=== PATIENT | female | born 2000 | race Two or more races ===

== ENCOUNTER → 2023-03-14 | Emergency (ER) | payer MEDICAID, OTHER | END | disposition left against medical advice (07) | LOC: ER 13:22 | DX: R05.9 Cough, unspecified (principal); Z53.21 Procedure and treatment not carried out due to patient leaving prior to being seen by health care provider ==

== ENCOUNTER 2023-09-01 23:32 | Inpatient (IN) | payer MEDICAID ==
[~2023-09-01] VITALS: Ht 172.7 cm; Wt 108.6 kg
[2023-09-02] VITALS (9 sets, daily range): BP systolic 102–123; BP diastolic 56–69; PULSE 93–107; RESP 20–22; TEMP 98.2–100.7; O2SAT 93–97
[2023-09-02 00:46] LABS: Urine Bacteria None Seen /hpf (None Seen)
[2023-09-02 01:08] LABS: Urine Blood TRACE /uL (Negative); Urine Clarity Clear (Clear); Urine Color Yellow (Yellow); Urine Mucus FEW (None Seen); Urine Protein, UAD 1+ (Negative); Urine Specific Gravity 1.017 (1.001-1.035); Urine Urobilinogen 6 mg/dL (Negative); Urine WBC 34 /hpf (0 - 5); Urine pH 6.5 (5.0-9.0)
[2023-09-02 01:09] LABS: Basophils # (auto) 0.1 10 ^3/uL (0-0.2); Basophils % (auto) 0.6 % (0.0-2.0); Eosinophils # (auto) 0 10 ^3/uL (0-0.8); Hemoglobin 11.4 g/dL (12.2-16.2); Lymphocytes # (auto) 1.4 10 ^3/uL (0.4-5.4); Mean Corpuscular Hemoglobin 27.2 pg (28.0-32.0); Mean Corpuscular Hgb Conc. 33.6 g/dL (32.0-36.0); Mean Corpuscular Volume 80.9 fL (80.0-100.0); Monocytes # (auto) 1.2 10 ^3/uL (0-1.3); Monocytes % (auto) 7.4 % (0.0-12.0); Neutrophils # (auto) 12.9 10 ^3/uL (1.6-8.6); Nucleated Red Blood Cells % 0.1 %; Red Cell Distribution Width 13.5 % (11.8-14.3); White Blood Cell 15.6 10^3/uL (4.4-10.8)
[2023-09-02 01:28] LABS: Alanine Aminotransferase 17 U/L (7-40); Albumin 4.2 g/dL (3.2-4.8); Alkaline Phosphatase 79 U/L (46-116); Anion Gap 6 (5-15); Aspartate Aminotransferase 17 U/L (13-40); BUN/Creatinine Ratio 10.8 (10.0-20.0); Bilirubin, Total 0.6 mg/dL (0.2-1.0); Blood Urea Nitrogen 8 mg/dL (9-23); Calcium 9.4 mg/dL (8.7-10.4); Carbon Dioxide 28 mmol/L (20-30); Chloride 100 mmol/L (98-107); Glucose 142 mg/dL (74-106); Lipase 27 U/L (12-53); Potassium 2.7 mmol/L (3.5-5.1); Sodium 134 mmol/L (136-145)
[2023-09-02] MEDS: ONDANSETRON ODT 4 MG TAB PO ONE (01:42)
[2023-09-02] MEDS: ACETAMINOPHEN 325 MG TAB PO ONE (01:42)
[2023-09-02] MEDS: SOD CHL 0.9%/ KCL 40MEQ 1,000 ML IV ONE (02:20)
[2023-09-02] MEDS: CIPROFLOXACIN 400MG/200ML 200 ML IV ONE (02:30)
[2023-09-02] MEDS ORDERED: ONDANSETRON HCL 4 MG/2 ML VIAL IV PRN ×2 (03:15→03:30)
[2023-09-02] MEDS ORDERED: HYDROcodone-ACET 5/325MG TAB PO PRN (03:15)
[2023-09-02] MEDS ORDERED: ACETAMINOPHEN 325 MG TAB PO PRN (03:15)
[2023-09-02] MEDS ORDERED: TEMAZEPAM 15 MG CAP PO PRN ×2 (03:15→03:30)
[2023-09-02] MEDS: cefTRIAXone 1GM/50ML D5W 50 ML IV ONE (05:00)
[2023-09-02] MEDS: cefTRIAXone 1GM/50ML D5W 50 ML IV SCH (05:41)
[2023-09-02] MEDS: HYDROcodone-ACET 5/325MG TAB PO PRN (05:42)
[2023-09-02] MEDS ORDERED: cefTRIAXone 1GM/50ML D5W 50 ML IV SCH (09:00)
[2023-09-02] MEDS: MORPHINE SULFATE INJ 2 MG/ml SYRG IV PRN (12:15)
[2023-09-02] MEDS: MAGNESIUM OXIDE 400 MG TAB PO ONE (12:15)
[2023-09-02] MEDS: POTASSIUM CHL 20 Meq TABLET PO ONE (12:15)
[2023-09-02 12:47] LABS: Hepatitis B Surface Antigen Negative (Negative)
[2023-09-02 13:08] LABS: Hepatitis A Ab IgM Negative
[2023-09-02 13:09] LABS: Hepatitis B Core IgM Negative; Hepatitis C Antibody Negative (Negative)
[2023-09-02] MEDS: SODIUM CHLORIDE 0.9% 1,000 ML IV SCH (13:45)
[2023-09-02] MEDS: ACETAMINOPHEN 325 MG TAB PO PRN (15:28)
[2023-09-03 01:00] VITALS: BP 109/68; PULSE 108; RESP 20; TEMP 98.8; O2SAT 93
[2023-09-03 05:00] VITALS: BP 110/59; PULSE 113; RESP 20; TEMP 99.3; O2SAT 92
[2023-09-03 05:59] LABS: Basophils # (auto) 0 10 ^3/uL (0-0.2); Basophils % (auto) 0.3 % (0.0-2.0); Eosinophils # (auto) 0 10 ^3/uL (0-0.8); Eosinophils % (auto) 0.2 % (0.0-7.0); Hematocrit 33.2 % (36.0-46.0); Hemoglobin 10.8 g/dL (12.2-16.2); Lymphocytes # (auto) 1.5 10 ^3/uL (0.4-5.4); Lymphocytes % (auto) 11.1 % (10.0-50.0); Mean Corpuscular Hemoglobin 26.8 pg (28.0-32.0); Mean Corpuscular Hgb Conc. 32.6 g/dL (32.0-36.0); Mean Corpuscular Volume 82.2 fL (80.0-100.0); Monocytes % (auto) 7.7 % (0.0-12.0); Neutrophils % (auto) 80.7 % (37.0-80.0); Red Blood Cells 4.04 10^6/uL (4.0-5.20); White Blood Cell 13.6 10^3/uL (4.4-10.8)
[2023-09-03 06:09] LABS: Chloride 103 mmol/L (98-107); Potassium 3.3 mmol/L (3.5-5.1); Sodium 136 mmol/L (136-145)
[2023-09-03 06:10] LABS: Anion Gap 6 (5-15); Carbon Dioxide 27 mmol/L (20-30)
[2023-09-03 06:11] LABS: Calcium 9.1 mg/dL (8.7-10.4)
[2023-09-03 06:15] LABS: Glucose 123 mg/dL (74-106)
[2023-09-03 06:27] LABS: BUN/Creatinine Ratio 8.2 (10.0-20.0); Blood Urea Nitrogen < 5 mg/dL (9-23)
[2023-09-03 09:00] VITALS: BP 115/71; PULSE 105; RESP 17; TEMP 99.3; O2SAT 92
[2023-09-03] MEDS: PANTOPRAZOLE 40 MG TAB PO SCH (09:52)
[2023-09-03 13:00] VITALS: BP 112/55; PULSE 100; RESP 17; TEMP 99.7; O2SAT 97
[2023-09-03 17:00] VITALS: BP 101/74; PULSE 97; RESP 17; TEMP 98.1; O2SAT 96
[2023-09-03] MEDS: POTASSIUM CHL 20 Meq TABLET PO SCH (18:18)
[2023-09-03 21:15] VITALS: BP 117/62; PULSE 97; RESP 19; TEMP 99; O2SAT 95
[2023-09-04 00:47] VITALS: BP 112/60; PULSE 105; RESP 19; TEMP 99.1; O2SAT 97
[2023-09-04 05:04] VITALS: BP 116/51; PULSE 94; RESP 18; TEMP 98.1; O2SAT 98
[2023-09-04 05:43] LABS: Basophils # (auto) 0 10 ^3/uL (0-0.2); Basophils % (auto) 0.3 % (0.0-2.0); Eosinophils # (auto) 0.1 10 ^3/uL (0-0.8); Eosinophils % (auto) 1.2 % (0.0-7.0); Hematocrit 29.7 % (36.0-46.0); Hemoglobin 9.8 g/dL (12.2-16.2); Lymphocytes % (auto) 21.5 % (10.0-50.0); Mean Corpuscular Hemoglobin 27.1 pg (28.0-32.0); Mean Corpuscular Volume 82.1 fL (80.0-100.0); Monocytes # (auto) 0.8 10 ^3/uL (0-1.3); Monocytes % (auto) 8.1 % (0.0-12.0); Neutrophils # (auto) 6.5 10 ^3/uL (1.6-8.6); Neutrophils % (auto) 68.9 % (37.0-80.0); Red Blood Cells 3.62 10^6/uL (4.0-5.20); Red Cell Distribution Width 13.9 % (11.8-14.3); White Blood Cell 9.4 10^3/uL (4.4-10.8)
[2023-09-04 05:53] LABS: Chloride 105 mmol/L (98-107); Potassium 3.8 mmol/L (3.5-5.1); Sodium 138 mmol/L (136-145)
[2023-09-04 05:54] LABS: Anion Gap 6 (5-15); Carbon Dioxide 27 mmol/L (20-30)
[2023-09-04 05:59] LABS: Glucose 111 mg/dL (74-106)
[2023-09-04 06:09] LABS: Blood Urea Nitrogen 6 mg/dL (9-23)
[2023-09-04 07:35] LABS: BUN/Creatinine Ratio 11.1 (10.0-20.0)
[2023-09-04 08:08] VITALS: BP 102/50; PULSE 94; RESP 16; TEMP 98.2; O2SAT 95
[2023-09-04 08:30] VITALS: RESP 14
[2023-09-04 11:33] VITALS: BP 103/57; PULSE 88; RESP 19; TEMP 98.4; O2SAT 98
[2023-09-04] MEDS ORDERED: CEFD300C2 PO (12:29)
[2023-09-04 16:37] VITALS: BP 102/60; PULSE 92; RESP 17; TEMP 98.6; O2SAT 97
== END 2023-09-04 19:20 | disposition home or self-care (01) | DRG 720 ==
LOC: ER 23:32 → OVERFLOW 09-02 03:18 → WEST WING 09-02 05:10
PROVIDERS: ADMIT Internal Medicine; ATTEND Internal Medicine
DX: A41.9 Sepsis, unspecified organism (principal); E87.6 Hypokalemia; N10 Acute pyelonephritis; J45.909 Unspecified asthma, uncomplicated; N83.201 Unspecified ovarian cyst, right side; R16.1 Splenomegaly, not elsewhere classified
CPT/HCPCS: 36415; 71045; 74176; 80048; 80053; 80074; 81001; 83036; 83605; 83690; 83735; 84439; 84443; 84702; 85025; 86703; 87040; 87086; 93005; G0378; Q0162